=== PATIENT | male | born 1955 | race Caucasian/White ===

== ENCOUNTER 2020-03-14 08:41 | Outpatient (CLI) | payer OTHER ==
--- NOTE | 2020-03-14 09:05 | RAD ---
LEFT SHOULDER 2 VIEWS: Date: 03/14/2020 HISTORY: Disability examination. FINDINGS: Humeral head is normally positioned. AC joint is normally aligned. No significant degenerative change . No fracture or acute abnormality. IMPRESSION: Unremarkable left shoulder. POS: AH
== END 2020-03-14 08:42 | disposition home or self-care (01) ==
LOC: BICRAD 08:41
PROVIDERS: ATTEND Internal Medicine
DX: Z02.71 Encounter for disability determination (principal)

== ENCOUNTER 2021-04-13 19:36 | Inpatient (IN) | payer MEDICARE ==
[2021-04-13] MEDS ORDERED: Ondansetron PF 4 MG/2 ML Vial IVP PRN (20:06)
[2021-04-13] MEDS ORDERED: Nitroglycerin 0.4 MG TAB (25 Tab Bottle) SL PRN (20:09)
[2021-04-13 20:30] VITALS: BMI 41.3
[2021-04-13] MEDS ORDERED: Metoprolol Tartrate 25 MG TAB PO SCH (21:00)
[2021-04-13] MEDS ORDERED: Dextrose 5% in Water 1,000 ML IV PRN (22:28)
[2021-04-13] MEDS: Rosuvastatin 20 MG TAB PO SCH (22:28)
[2021-04-13] MEDS ORDERED: HumaLOG 300 UNITS/3 ML VIAL SC PRN ×2 (22:28)
[2021-04-13] MEDS ORDERED: Dextrose 50% Abboject 50 ML SYRINGE SLOW IVP PRN (22:28)
[2021-04-13] MEDS: Enoxaparin Sodium 100 MG/ML SYRINGE SC SCH (22:29)
[2021-04-13] MEDS ORDERED: Nitroglycerin 2% Ointment 1 INCH/1 GM Packet TOP SCH (23:00)
[2021-04-13] MEDS: Acetaminophen 325 MG TAB PO PRN (23:46)
[2021-04-14 05:22] LABS: #Eosinphils 0.1 thou/uL (0.0-0.7); #Lymphocytes 2.7 thou/uL (1.20-3.40); #Monocytes 1.4 thou/uL (0.11-0.59); %Basophils 0.2 % (0.0-1.0); %Eosinophils 0.5 % (0.0-10.0); %Lymphocytes 16.8 % (21.0-51.0); %Monocytes 8.7 % (0.0-10.0); %Neutrophils 73.8 % (42.0-75.0); Hemoglobin 12.8 g/dL (14.0-18.0); Mean Corpuscular HGB CONC 32.1 g/dL (32.0-36.0); Mean Corpuscular Hemoglobin 29.6 pg (27.0-31.0); Mean Corpuscular Volume 91.9 fL (78.0-98.0); Mean Platelet Volume 7.2 fL (7.4-10.4); Platelet Count 266 thou/uL (130-400); RBC Distribution Width 13.1 % (11.5-14.5); Red Blood Cell (RBC) Count 4.32 mill/uL (4.70-6.10); White Blood Cell (WBC) Count 16.2 thou/uL (4.8-10.8)
[2021-04-14] MEDS: Nitroglycerin 2% Ointment 1 INCH/1 GM Packet TOP SCH ×3 (05:40→21:34)
[2021-04-14] MEDS: Acetaminophen 325 MG TAB PO PRN (05:43)
[2021-04-14 05:44] LABS: Anion Gap 11 mmol/L (10-20); BUN (Urea Nitrogen) 11 mg/dL (8.4-25.7); Calc. Creatinine Clearance 79 mL/min (70-130); Calcium 9.1 mg/dL (7.8-10.44); Carbon Dioxide 28 mmol/L (23-31); Chloride 99 mmol/L (98-107); Glucose 125 mg/dL (80-115); Potassium 4.2 mmol/L (3.5-5.1); Sodium 134 mmol/L (136-145)
[2021-04-14] MEDS ORDERED: Communication Order-Pharmacy FS SCH (08:28)
[2021-04-14] MEDS ORDERED: ceFAZolin Sodium/D5W 2 GM in Premix Bag 1 BAG IVPB SCH (08:45)
[2021-04-14] MEDS: Metoprolol Tartrate 25 MG TAB PO SCH ×2 (09:48→20:28)
[2021-04-14] MEDS: Sodium Chloride 0.9% 1,000 ML IV SCH ×2 (09:48→20:29)
[2021-04-14] MEDS: Enoxaparin Sodium 100 MG/ML SYRINGE SC SCH ×2 (09:55→20:28)
[2021-04-14 10:59] LABS: Troponin I 30.903 ng/mL (< 0.028)
[2021-04-14 13:21] LABS: Bacteria/HPF None Seen HPF (None Seen); Bilirubin Negative (Negative); Blood, Urine Trace (Negative); Clarity Clear (Clear); Glucose, Urine (Dipstick) Normal (Negative); Ketone, Urine Negative (Negative); Leukocyte Negative Leu/uL (Negative); Nitrite Negative (Negative); Protein, Urine (Dipstick) 30 mg/dL (Neg-Trace); RBC/HPF 0-3 HPF (0-3); Specific Gravity, Urine 1.027 (1.002-1.036); Squamous Epithelial 0-3 HPF (0-3); Urobilinogen Normal mg/dL (Less than 2); WBC/HPF 0-3 HPF (0-3)
[2021-04-14 13:24] LABS: Urine Culture Reflex No No
[2021-04-14] MEDS ORDERED: Aspirin 325 MG TAB PO SCH (13:45)
[2021-04-14] MEDS: Rosuvastatin 20 MG TAB PO SCH (20:28)
[2021-04-15 04:50] LABS: #Eosinphils 0.1 thou/uL (0.0-0.7); #Lymphocytes 3.3 thou/uL (1.20-3.40); #Monocytes 1.4 thou/uL (0.11-0.59); %Eosinophils 0.9 % (0.0-10.0); %Monocytes 9.7 % (0.0-10.0); %Neutrophils 67.4 % (42.0-75.0); Hemoglobin 12.7 g/dL (14.0-18.0); Mean Corpuscular HGB CONC 31.7 g/dL (32.0-36.0); Mean Corpuscular Hemoglobin 29.2 pg (27.0-31.0); Mean Platelet Volume 7.2 fL (7.4-10.4); Platelet Count 256 thou/uL (130-400); RBC Distribution Width 13.3 % (11.5-14.5); Red Blood Cell (RBC) Count 4.36 mill/uL (4.70-6.10); White Blood Cell (WBC) Count 14.8 thou/uL (4.8-10.8)
[2021-04-15 05:24] LABS: Anion Gap 11 mmol/L (10-20); BUN (Urea Nitrogen) 14 mg/dL (8.4-25.7); Calc. Creatinine Clearance 78 mL/min (70-130); Carbon Dioxide 26 mmol/L (23-31); Chloride 102 mmol/L (98-107); Glucose 109 mg/dL (80-115); Potassium 3.9 mmol/L (3.5-5.1); Sodium 135 mmol/L (136-145)
[2021-04-15] MEDS: Nitroglycerin 2% Ointment 1 INCH/1 GM Packet TOP SCH ×2 (05:28→15:08)
[2021-04-15] MEDS: Metoprolol Tartrate 25 MG TAB PO SCH (05:28)
[2021-04-15] MEDS ORDERED: Albumin 5% 500 ML ONE ×2 (06:27→14:24)
[2021-04-15] MEDS ORDERED: Aspirin 325 MG TAB PO SCH (09:00)
[2021-04-15] MEDS: Sodium Chloride 0.9% 1,000 ML IV SCH (09:04)
[2021-04-15] MEDS ORDERED: Fentanyl 250 MCG/5 ML VIAL ONE (09:32)
[2021-04-15] MEDS ORDERED: Midazolam HCl 5 mg/5 ml Vial ONE (09:33)
[2021-04-15] MEDS ORDERED: CEFAZOLIN 2 GM in Premix Bag 1 BAG IVPB SCH (10:00)
[2021-04-15] MEDS ORDERED: Heparin 10,000 UNITS/1 ML VIAL 30,000 UNITS in Sodium Chloride 0.9% 1,000 ML FS SCH (10:00)
[2021-04-15] MEDS ORDERED: Cardioplegic Soln 1,000 ML BAG ONE (10:20)
[2021-04-15] MEDS ORDERED: Magnesium Sulfate 1 GM/2 ML VIAL ONE (10:20)
[2021-04-15] MEDS ORDERED: Lidocaine 1% PF 5 ML VIAL ONE (10:20)
[2021-04-15] MEDS ORDERED: Aminocaproic Acid 5 GM/20 ML VIAL ONE (10:20)
[2021-04-15] MEDS ORDERED: Mannitol 12.5 GM/50 ML ONE (10:20)
[2021-04-15] MEDS ORDERED: Heparin 30,000 units/30 ml VIAL ONE (10:20)
[2021-04-15] MEDS ORDERED: Heparin 5,000 UNITS/ML VIAL ONE (10:20)
[2021-04-15] MEDS ORDERED: PROPOFOL 200 MG/20 ML VIAL ONE (10:20)
[2021-04-15] MEDS ORDERED: Ondansetron PF 4 MG/2 ML Vial ONE (10:20)
[2021-04-15] MEDS ORDERED: Rocuronium Bromide 10 MG/ML (10ML VIAL) ONE (10:20)
[2021-04-15] MEDS ORDERED: Protamine Sulfate 250 MG/25 ML VIAL ONE (10:20)
[2021-04-15] MEDS ORDERED: Dexamethasone 20 MG/5 ML VIAL ONE (10:20)
[2021-04-15] MEDS ORDERED: Potassium Chloride 60 MEQ/30 ML VIAL ONE (10:20)
[2021-04-15] MEDS ORDERED: Sodium Bicarb 50 MEQ/50 ML Abboject 8.4% SYRINGE ONE (10:20)
[2021-04-15] MEDS ORDERED: Lidocaine 2% PF 100 mg/5 ml Syringe ONE (10:20)
[2021-04-15] MEDS ORDERED: Calcium Chloride 1 GM/10 ML Abboject SYRINGE ONE (10:20)
[2021-04-15] MEDS ORDERED: Papaverine 60 MG/2 ML VIAL ONE (10:20)
[2021-04-15] MEDS ORDERED: Thrombin 5000 UNITS/5 ML VIAL ONE (10:20)
[2021-04-15] MEDS ORDERED: PHENYLEPHRINE-NS 100 MCG/ML 10 ML SYRINGE ONE (10:54)
[2021-04-15] MEDS ORDERED: ceFAZolin 2 GM/DEX 5% 100 ML BAG IVPB SCH (14:00)
[2021-04-15 14:23] LABS: Actual Bicarbonate (HCO3a) 22.2 mEq/L (22-28); Base Excess (BEa) -3.7 mEq/L (-2.0 to +3.0); CO2 Tension 43.3 mmHg (35.0-45.0); Calcium, Ionized (arterial) 1.13 mmol/L (1.12-1.30); Carboxyhemoglobin (COHb) 0.4 gm% (0.0-3.0); Hemoglobin (Hb) 12.6 g/dL (14.0-18.0); O2 Tension (PaO2), arterial 156.3 mmHg (> 80.0); Potassium - ABG Lab 4.55 mmol/L (3.70-5.30); pH, Arterial 7.33 (7.35-7.45)
[2021-04-15 14:24] LABS: ALV-art Gradient 217.375 mmHg (0-20); Puncture Site Arterial Line
[2021-04-15] MEDS ORDERED: Hetastarch 6% 500 ML 500 ML IVPB PRN (14:28)
[2021-04-15] MEDS ORDERED: Nitroglycerin 50 MG/250 ML BOT 250 ML IVPB PRN (14:28)
[2021-04-15] MEDS ORDERED: Promethazine HCl 25 MG/ML VIAL IM PRN (14:28)
[2021-04-15] MEDS ORDERED: DOPamine 400 MG/D5W 250 ML 250 ML IVPB PRN (14:28)
[2021-04-15] MEDS ORDERED: niCARdipine 25 MG in Sodium Chloride 0.9% 250 ML 240 ML IVPB PRN (14:28)
[2021-04-15] MEDS ORDERED: Bisacodyl 10 MG SUPP PR PRN (14:28)
[2021-04-15] MEDS ORDERED: Morphine 2 MG/ML VIAL SLOW IVP PRN (14:28)
[2021-04-15] MEDS ORDERED: HYDROcodone/Acetaminophen 5/325 mg Tablet PO PRN (14:28)
[2021-04-15] MEDS ORDERED: Mag-Al 1200 mg/1200 mg/30 ML UDCUP PO PRN (14:28)
[2021-04-15] MEDS ORDERED: Guaifenesin DM 100-10/5 ML UDCUP PO PRN (14:28)
[2021-04-15] MEDS ORDERED: Norepinephrine 8 MG/0.9% NS 250 ML IVPB PRN (14:28)
[2021-04-15] MEDS ORDERED: hydrALAZINE 20 MG/ML VIAL SLOW IVP PRN (14:28)
[2021-04-15] MEDS ORDERED: Polyethylene Glycol 3350 17 GM Packet PO PRN (14:28)
[2021-04-15] MEDS ORDERED: Ondansetron PF 4 MG/2 ML Vial IVP PRN (14:28)
[2021-04-15] MEDS ORDERED: Post-Op Insulin Drip Protocol IVPB ONE (14:28)
[2021-04-15] MEDS ORDERED: Fentanyl 100 MCG/2 ML VIAL SLOW IVP PRN ×2 (14:28)
[2021-04-15] MEDS ORDERED: Potassium Chloride 20 MEQ/100 ML PREMIX BAG IVPB PRN (14:28)
[2021-04-15] MEDS ORDERED: Bisacodyl 5 MG TAB PO PRN (14:28)
[2021-04-15 14:45] LABS: Mean Corpuscular HGB CONC 31.5 g/dL (32.0-36.0); Mean Corpuscular Hemoglobin 29.2 pg (27.0-31.0); Mean Corpuscular Volume 92.7 fL (78.0-98.0); Mean Platelet Volume 7.1 fL (7.4-10.4); Platelet Count 208 thou/uL (130-400); RBC Distribution Width 13.2 % (11.5-14.5); White Blood Cell (WBC) Count 26.8 thou/uL (4.8-10.8)
[2021-04-15 14:56] LABS: INR-International Normal Ratio 1.4; PTT 29.1 sec (22.9-36.1); Prothrombin Time 17.3 sec (12.0-14.7)
[2021-04-15 15:04] LABS: Anion Gap 15 mmol/L (10-20); BUN (Urea Nitrogen) 13 mg/dL (8.4-25.7); Calc. Creatinine Clearance 91 mL/min (70-130); Calcium 8.4 mg/dL (7.8-10.44); Carbon Dioxide 18 mmol/L (23-31); Chloride 108 mmol/L (98-107); Glucose 151 mg/dL (80-115); Potassium 4.7 mmol/L (3.5-5.1); Sodium 136 mmol/L (136-145)
[2021-04-15 15:06] LABS: Band 39 % (5-11); Lymphocytes 9 % (21-51); MDiff Complete? YES; Monocytes 7 % (0-10); Neutrophil 45 % (42-75); Platelet Morphology Comment Appears Adequate; RBC Morphology Normal
[2021-04-15] MEDS ORDERED: Dextrose 50% Abboject 50 ML SYRINGE SLOW IVP PRN (15:15)
[2021-04-15] MEDS: Insulin Regular 300 UNITS/3 ML VIAL SC PRN ×2 (15:15→20:31)
[2021-04-15] MEDS ORDERED: HUMULIN R 100 UNITS in Sodium Chloride 0.9% 100 ML IVPB SCH (15:15)
[2021-04-15] MEDS ORDERED: Dextrose 5% in Water 1,000 ML IV PRN (15:15)
[2021-04-15] MEDS: Lactated Ringer's 1,000 ML IV SCH (15:19)
[2021-04-15] MEDS: Acetaminophen 325 MG TAB PO PRN ×2 (16:29→23:03)
[2021-04-15] MEDS: CEFAZOLIN 2 GM, Admixture Fee 1 EACH in Sodium Chloride 0.9% 100 ML IVPB SCH (17:55)
[2021-04-15] MEDS: Ketorolac Tromethamine 30 MG/ML VIAL IVP SCH ×2 (17:55→23:02)
[2021-04-15] MEDS ORDERED: ceFAZolin Sodium/D5W 2 GM in Premix Bag 1 BAG IVPB SCH (18:00)
[2021-04-15] MEDS: HYDROcodone/Acetaminophen 5/325 mg Tablet PO PRN (20:29)
[2021-04-15] MEDS: Rosuvastatin 20 MG TAB PO SCH (20:30)
[2021-04-15 20:34] LABS: Hemoglobin 11.5 g/dL (14.0-18.0)
[2021-04-15 20:55] LABS: Potassium 4.7 mmol/L (3.5-5.1)
[2021-04-15] MEDS ORDERED: Famotidine/PF 20 mg/2ml Vial SLOW IVP SCH (21:00)
[2021-04-16] MEDS: Insulin Regular 300 UNITS/3 ML VIAL SC PRN ×4 (00:25→16:39)
[2021-04-16] MEDS: CEFAZOLIN 2 GM, Admixture Fee 1 EACH in Sodium Chloride 0.9% 100 ML IVPB SCH ×2 (02:20→10:57)
[2021-04-16] MEDS: Lactated Ringer's 1,000 ML IV SCH ×2 (02:21→06:41)
[2021-04-16 04:36] LABS: #Basophils 0.4 thou/uL (0.0-0.2); #Lymphocytes 1.2 thou/uL (1.20-3.40); #Monocytes 1.4 thou/uL (0.11-0.59); #Neutrophils 16.7 thou/uL (1.40-6.50); %Basophils 1.9 % (0.0-1.0); %Eosinophils 0.2 % (0.0-10.0); %Monocytes 6.9 % (0.0-10.0); %Neutrophils 84.9 % (42.0-75.0); Hemoglobin 10.4 g/dL (14.0-18.0); Mean Corpuscular HGB CONC 30.4 g/dL (32.0-36.0); Mean Corpuscular Hemoglobin 28.6 pg (27.0-31.0); Mean Corpuscular Volume 94.1 fL (78.0-98.0); Mean Platelet Volume 7.8 fL (7.4-10.4); Platelet Count 200 thou/uL (130-400); RBC Distribution Width 13.3 % (11.5-14.5); Red Blood Cell (RBC) Count 3.62 mill/uL (4.70-6.10); White Blood Cell (WBC) Count 19.6 thou/uL (4.8-10.8)
[2021-04-16 04:59] LABS: Anion Gap 10 mmol/L (10-20); BUN (Urea Nitrogen) 18 mg/dL (8.4-25.7); Calc. Creatinine Clearance 71 mL/min (70-130); Calcium 7.7 mg/dL (7.8-10.44); Carbon Dioxide 24 mmol/L (23-31); Chloride 106 mmol/L (98-107); Glucose 149 mg/dL (80-115); Potassium 4.6 mmol/L (3.5-5.1); Sodium 135 mmol/L (136-145)
[2021-04-16] MEDS: Ketorolac Tromethamine 30 MG/ML VIAL IVP SCH (05:30)
[2021-04-16] MEDS ORDERED: Ketorolac Tromethamine 30 MG/ML VIAL ONE (06:29)
[2021-04-16] MEDS ORDERED: Mineral Oil ENEMA PR PRN (07:13)
[2021-04-16] MEDS ORDERED: Nitroglycerin 0.4 MG TAB (25 Tab Bottle) SL PRN (07:13)
[2021-04-16] MEDS: Aspirin Chewable 81 MG TAB PO SCH (08:24)
[2021-04-16] MEDS: Famotidine 20 MG TAB PO SCH ×2 (08:24→20:13)
[2021-04-16] MEDS: Enoxaparin Sodium 40 MG/0.4 ML SYRINGE SC SCH (08:24)
[2021-04-16] MEDS: Clopidogrel Bisulfate 75 MG TAB PO SCH (08:24)
[2021-04-16] MEDS ORDERED: FLU VACC QS2021-22(65YR UP)/PF 240 MCG/0.7 ML SYRINGE IM ONE (09:00)
[2021-04-16] MEDS ORDERED: Aspirin 325 MG TAB PO SCH (09:00)
[2021-04-16] MEDS: HYDROcodone/Acetaminophen 5/325 mg Tablet PO PRN ×2 (13:37→21:51)
[2021-04-16] MEDS: Acetaminophen 325 MG TAB PO PRN (20:13)
[2021-04-16] MEDS: Rosuvastatin 20 MG TAB PO SCH (20:13)
[2021-04-17] MEDS: HYDROcodone/Acetaminophen 5/325 mg Tablet PO PRN ×3 (02:39→22:22)
[2021-04-17] MEDS: Lactated Ringer's 1,000 ML IV SCH (02:41)
[2021-04-17 04:24] LABS: #Eosinphils 0.1 thou/uL (0.0-0.7); #Lymphocytes 2.3 thou/uL (1.20-3.40); #Monocytes 1.5 thou/uL (0.11-0.59); %Eosinophils 0.6 % (0.0-10.0); %Lymphocytes 16.3 % (21.0-51.0); Hemoglobin 10.6 g/dL (14.0-18.0); Mean Corpuscular HGB CONC 31.8 g/dL (32.0-36.0); Mean Corpuscular Hemoglobin 29.8 pg (27.0-31.0); Mean Corpuscular Volume 93.6 fL (78.0-98.0); Mean Platelet Volume 7.5 fL (7.4-10.4); Platelet Count 205 thou/uL (130-400); RBC Distribution Width 13.2 % (11.5-14.5); Red Blood Cell (RBC) Count 3.54 mill/uL (4.70-6.10); White Blood Cell (WBC) Count 13.8 thou/uL (4.8-10.8)
[2021-04-17 04:50] LABS: Anion Gap 11 mmol/L (10-20); BUN (Urea Nitrogen) 16 mg/dL (8.4-25.7); Calc. Creatinine Clearance 88 mL/min (70-130); Calcium 7.9 mg/dL (7.8-10.44); Carbon Dioxide 25 mmol/L (23-31); Chloride 105 mmol/L (98-107); Glucose 127 mg/dL (80-115); Potassium 4.2 mmol/L (3.5-5.1); Sodium 137 mmol/L (136-145)
[2021-04-17] MEDS: Aspirin Chewable 81 MG TAB PO SCH (07:46)
[2021-04-17] MEDS: Potassium Chloride 10 MEQ TAB PO SCH ×2 (07:47→16:39)
[2021-04-17] MEDS: Clopidogrel Bisulfate 75 MG TAB PO SCH (07:47)
[2021-04-17] MEDS: Enoxaparin Sodium 40 MG/0.4 ML SYRINGE SC SCH (07:47)
[2021-04-17] MEDS: Furosemide 40 MG TAB PO SCH ×2 (07:47→14:35)
[2021-04-17] MEDS: metFORMIN 500 MG TAB PO SCH (07:47)
[2021-04-17] MEDS: Famotidine 20 MG TAB PO SCH ×2 (07:47→20:57)
[2021-04-17] MEDS: Rosuvastatin 20 MG TAB PO SCH (20:57)
[2021-04-18 05:23] LABS: #Eosinphils 0.1 thou/uL (0.0-0.7); #Lymphocytes 2.5 thou/uL (1.20-3.40); #Monocytes 1.2 thou/uL (0.11-0.59); %Basophils 0.2 % (0.0-1.0); %Eosinophils 0.8 % (0.0-10.0); %Lymphocytes 19.4 % (21.0-51.0); %Monocytes 9.6 % (0.0-10.0); Hemoglobin 11.3 g/dL (14.0-18.0); Mean Corpuscular HGB CONC 30.8 g/dL (32.0-36.0); Mean Corpuscular Hemoglobin 28.3 pg (27.0-31.0); Mean Platelet Volume 7.4 fL (7.4-10.4); Platelet Count 257 thou/uL (130-400); RBC Distribution Width 13.3 % (11.5-14.5); Red Blood Cell (RBC) Count 3.98 mill/uL (4.70-6.10); White Blood Cell (WBC) Count 12.9 thou/uL (4.8-10.8)
[2021-04-18] MEDS: HYDROcodone/Acetaminophen 5/325 mg Tablet PO PRN ×2 (05:39→22:50)
[2021-04-18 05:44] LABS: Anion Gap 11 mmol/L (10-20); BUN (Urea Nitrogen) 14 mg/dL (8.4-25.7); Calc. Creatinine Clearance 88 mL/min (70-130); Calcium 8.6 mg/dL (7.8-10.44); Carbon Dioxide 31 mmol/L (23-31); Chloride 97 mmol/L (98-107); Glucose 129 mg/dL (80-115); Potassium 3.3 mmol/L (3.5-5.1); Sodium 136 mmol/L (136-145)
[2021-04-18] MEDS ORDERED: Potassium Chloride 20 MEQ TAB PO SCH ×2 (06:15→18:00)
[2021-04-18] MEDS ORDERED: Metolazone 2.5 MG TAB PO SCH (08:30)
[2021-04-18] MEDS: Amoxicillin/Potassium Clav 875 MG TAB PO SCH ×2 (09:12→21:01)
[2021-04-18] MEDS: Aspirin Chewable 81 MG TAB PO SCH (09:12)
[2021-04-18] MEDS: Potassium Chloride 10 MEQ TAB PO SCH ×2 (09:12→17:48)
[2021-04-18] MEDS: metFORMIN 500 MG TAB PO SCH (09:13)
[2021-04-18] MEDS: Clopidogrel Bisulfate 75 MG TAB PO SCH (09:13)
[2021-04-18] MEDS: Famotidine 20 MG TAB PO SCH ×2 (09:13→21:01)
[2021-04-18] MEDS: Furosemide 40 MG TAB PO SCH ×2 (09:13→14:01)
[2021-04-18] MEDS: Metoprolol Tartrate 25 MG TAB PO SCH ×2 (09:13→21:01)
[2021-04-18] MEDS: Enoxaparin Sodium 40 MG/0.4 ML SYRINGE SC SCH (09:15)
[2021-04-18] MEDS: Rosuvastatin 20 MG TAB PO SCH (21:01)
[2021-04-19 05:49] LABS: Anion Gap 13 mmol/L (10-20); BUN (Urea Nitrogen) 20 mg/dL (8.4-25.7); Calc. Creatinine Clearance 77 mL/min (70-130); Calcium 9.4 mg/dL (7.8-10.44); Carbon Dioxide 36 mmol/L (23-31); Chloride 92 mmol/L (98-107); Glucose 128 mg/dL (80-115); Potassium 3.8 mmol/L (3.5-5.1); Sodium 137 mmol/L (136-145)
[2021-04-19] MEDS: Potassium Chloride 10 MEQ TAB PO SCH ×2 (08:33→15:59)
[2021-04-19] MEDS: metFORMIN 500 MG TAB PO SCH (08:33)
[2021-04-19] MEDS: Enoxaparin Sodium 40 MG/0.4 ML SYRINGE SC SCH (08:33)
[2021-04-19] MEDS: Furosemide 40 MG TAB PO SCH ×2 (08:34→15:59)
[2021-04-19] MEDS: Famotidine 20 MG TAB PO SCH ×2 (08:34→20:20)
[2021-04-19] MEDS: Metoprolol Tartrate 25 MG TAB PO SCH ×2 (08:34→20:21)
[2021-04-19] MEDS: Aspirin Chewable 81 MG TAB PO SCH (08:34)
[2021-04-19] MEDS: Clopidogrel Bisulfate 75 MG TAB PO SCH (08:34)
[2021-04-19] MEDS: Amoxicillin/Potassium Clav 875 MG TAB PO SCH ×2 (08:34→20:20)
[2021-04-19] MEDS: Acetaminophen 325 MG TAB PO PRN (12:06)
[2021-04-19] MEDS: Rosuvastatin 20 MG TAB PO SCH (20:20)
[2021-04-20] MEDS: HYDROcodone/Acetaminophen 5/325 mg Tablet PO PRN (02:39)
[2021-04-20 04:50] LABS: Anion Gap 14 mmol/L (10-20); BUN (Urea Nitrogen) 32 mg/dL (8.4-25.7); Calc. Creatinine Clearance 59 mL/min (70-130); Calcium 9.7 mg/dL (7.8-10.44); Carbon Dioxide 36 mmol/L (23-31); Chloride 90 mmol/L (98-107); Glucose 126 mg/dL (80-115); Potassium 3.7 mmol/L (3.5-5.1); Sodium 136 mmol/L (136-145)
[2021-04-20] MEDS: Aspirin Chewable 81 MG TAB PO SCH (09:16)
[2021-04-20] MEDS: Clopidogrel Bisulfate 75 MG TAB PO SCH (09:16)
[2021-04-20] MEDS: Potassium Chloride 10 MEQ TAB PO SCH (09:17)
[2021-04-20] MEDS: metFORMIN 500 MG TAB PO SCH (09:17)
[2021-04-20] MEDS: Metoprolol Tartrate 25 MG TAB PO SCH (09:17)
[2021-04-20] MEDS: Amoxicillin/Potassium Clav 875 MG TAB PO SCH ×2 (09:17→20:13)
[2021-04-20] MEDS: Famotidine 20 MG TAB PO SCH ×2 (09:17→20:13)
[2021-04-20] MEDS: Enoxaparin Sodium 40 MG/0.4 ML SYRINGE SC SCH (09:18)
[2021-04-20] MEDS: Furosemide 40 MG TAB PO SCH ×2 (09:19→18:48)
[2021-04-20] MEDS: Rosuvastatin 20 MG TAB PO SCH (20:13)
[2021-04-21 04:39] LABS: #Eosinphils 0.2 thou/uL (0.0-0.7); #Lymphocytes 4.6 thou/uL (1.20-3.40); #Monocytes 1.3 thou/uL (0.11-0.59); #Neutrophils 9.7 thou/uL (1.40-6.50); %Basophils 0.2 % (0.0-1.0); %Eosinophils 1.5 % (0.0-10.0); %Lymphocytes 28.7 % (21.0-51.0); %Monocytes 8.4 % (0.0-10.0); %Neutrophils 61.2 % (42.0-75.0); Mean Corpuscular HGB CONC 31.3 g/dL (32.0-36.0); Mean Corpuscular Hemoglobin 28.5 pg (27.0-31.0); Mean Corpuscular Volume 91.2 fL (78.0-98.0); Mean Platelet Volume 7.2 fL (7.4-10.4); Platelet Count 453 thou/uL (130-400); RBC Distribution Width 13.2 % (11.5-14.5); Red Blood Cell (RBC) Count 4.54 mill/uL (4.70-6.10); White Blood Cell (WBC) Count 15.9 thou/uL (4.8-10.8)
[2021-04-21 04:41] LABS: Hemoglobin A1c 7.1 % (4.0-6.0)
[2021-04-21 04:54] LABS: Anion Gap 16 mmol/L (10-20); BUN (Urea Nitrogen) 35 mg/dL (8.4-25.7); Calc. Creatinine Clearance 58 mL/min (70-130); Calcium 9.6 mg/dL (7.8-10.44); Carbon Dioxide 34 mmol/L (23-31); Chloride 90 mmol/L (98-107); Glucose 123 mg/dL (80-115); Potassium 3.3 mmol/L (3.5-5.1); Sodium 137 mmol/L (136-145)
[2021-04-21] MEDS ORDERED: Metoprolol Tartrate 25 MG TAB PO SCH (09:00)
[2021-04-21] MEDS: Acetaminophen 325 MG TAB PO PRN (09:52)
[2021-04-21] MEDS: Famotidine 20 MG TAB PO SCH ×2 (09:53→20:40)
[2021-04-21] MEDS: metFORMIN 500 MG TAB PO SCH (09:53)
[2021-04-21] MEDS: Clopidogrel Bisulfate 75 MG TAB PO SCH (09:53)
[2021-04-21] MEDS: Aspirin Chewable 81 MG TAB PO SCH (09:53)
[2021-04-21] MEDS: Amoxicillin/Potassium Clav 875 MG TAB PO SCH ×2 (09:53→20:40)
[2021-04-21] MEDS: Enoxaparin Sodium 40 MG/0.4 ML SYRINGE SC SCH (09:54)
[2021-04-21] MEDS ORDERED: Sodium Chloride 0.9% 500 ML IV SCH (11:00)
[2021-04-21] MEDS ORDERED: Dextrose 5% in Water 1,000 ML IV PRN (11:01)
[2021-04-21] MEDS ORDERED: Dextrose 50% Abboject 50 ML SYRINGE SLOW IVP PRN (11:01)
[2021-04-21] MEDS: Metoprolol Tartrate 25 MG TAB PO SCH (20:40)
[2021-04-21] MEDS: Rosuvastatin 20 MG TAB PO SCH (20:40)
[2021-04-22] MEDS: Acetaminophen 325 MG TAB PO PRN (04:48)
[2021-04-22 05:23] LABS: #Eosinphils 0.2 thou/uL (0.0-0.7); #Monocytes 1.2 thou/uL (0.11-0.59); #Neutrophils 8.8 thou/uL (1.40-6.50); %Basophils 0.3 % (0.0-1.0); %Eosinophils 1.6 % (0.0-10.0); %Lymphocytes 22.6 % (21.0-51.0); %Monocytes 8.8 % (0.0-10.0); %Neutrophils 66.7 % (42.0-75.0); Hemoglobin 12.2 g/dL (14.0-18.0); Mean Corpuscular HGB CONC 31.3 g/dL (32.0-36.0); Mean Corpuscular Hemoglobin 28.6 pg (27.0-31.0); Mean Corpuscular Volume 91.2 fL (78.0-98.0); Mean Platelet Volume 7.3 fL (7.4-10.4); Platelet Count 447 thou/uL (130-400); RBC Distribution Width 13.2 % (11.5-14.5); Red Blood Cell (RBC) Count 4.29 mill/uL (4.70-6.10); White Blood Cell (WBC) Count 13.3 thou/uL (4.8-10.8)
[2021-04-22 05:38] LABS: Anion Gap 15 mmol/L (10-20); BUN (Urea Nitrogen) 36 mg/dL (8.4-25.7); Calc. Creatinine Clearance 58 mL/min (70-130); Calcium 9.4 mg/dL (7.8-10.44); Carbon Dioxide 32 mmol/L (23-31); Chloride 95 mmol/L (98-107); Glucose 121 mg/dL (80-115); Potassium 3.9 mmol/L (3.5-5.1); Sodium 138 mmol/L (136-145)
[2021-04-22] MEDS: Amoxicillin/Potassium Clav 875 MG TAB PO SCH (09:37)
[2021-04-22] MEDS: Aspirin Chewable 81 MG TAB PO SCH (09:37)
[2021-04-22] MEDS: Clopidogrel Bisulfate 75 MG TAB PO SCH (09:37)
[2021-04-22] MEDS: Enoxaparin Sodium 40 MG/0.4 ML SYRINGE SC SCH (09:38)
[2021-04-22] MEDS: Famotidine 20 MG TAB PO SCH (09:38)
[2021-04-22] MEDS: Metoprolol Tartrate 25 MG TAB PO SCH (09:39)
[2021-04-22 11:56] VITALS: BP 131/79; TEMP 98
== END 2021-04-22 14:34 | disposition home or self-care (01) | DRG 236 ==
LOC: 2NO 19:36 → CCU 04-15 09:59 → 2NO 04-16 09:44
PROVIDERS: ADMIT Hospitalist; ATTEND Family Medicine
PROC: 02100Z9 Bypass Coronary Artery, One Artery from Left Internal Mammary, Open Approach (ICD-10-PCS; principal; 2021-04-15)
PROC: 021209W Bypass Coronary Artery, Three Arteries from Aorta with Autologous Venous Tissue, Open Approach (ICD-10-PCS; 2021-04-15)
PROC: 06BQ4ZZ Excision of Left Saphenous Vein, Percutaneous Endoscopic Approach (ICD-10-PCS; 2021-04-15)
PROC: 5A1221Z Performance of Cardiac Output, Continuous (ICD-10-PCS; 2021-04-15)
DX: I21.4 Non-ST elevation (NSTEMI) myocardial infarction (principal); N17.9 Acute kidney failure, unspecified; Z68.41 Body mass index [BMI] 40.0-44.9, adult; I25.10 Atherosclerotic heart disease of native coronary artery without angina pectoris; Z20.822 Contact with and (suspected) exposure to COVID-19; I95.1 Orthostatic hypotension; D72.829 Elevated white blood cell count, unspecified; E11.65 Type 2 diabetes mellitus with hyperglycemia; I25.5 Ischemic cardiomyopathy; E66.9 Obesity, unspecified; Z60.2 Problems related to living alone
CPT/HCPCS: 36415; 36416; 71045; 80048; 80053; 80061; 81001; 82553; 82805; 83036; 83880; 84484; 85025; 85610; 85730; 86850; 86900; 86901; 93005; 93010; 93306; 93459; 93798; 94002; 96372; 96374; 96375; 96376; 97139; 99152; 99153; C1713; C1776; G0378; J0153; J0690; J1100; J1642; J1644; J1650; J1815; J1885; J2001; J2150; J2250; J2270; J2405; J2440; J2704; J2720; J3010; J3370; J3475; J3480; J3490; J7030; J7050; J7120; P9045; S0017; S0028; U0002